=== PATIENT | male | born 1955 | race Caucasian/White ===

== ENCOUNTER → 2016-08-17 | Outpatient (CLI) | payer OTHER ==
[~2016-08-17] MED LIST: CIPRO500 MG PO; FLOMAX0.4 MG PO; HYDROCODONE BIT1 T11 PO; HYDROXYCHLOROQ200 M1 PO; METHOTREXATE S2.5 M1 PO; MOTRIN 600 MG E4 TAB PO; NORCO 5-325 TA1 EACH PO; PERCOCET 325 MG1 TA2 PO; TAMSULOSIN HCL0.4 MG PO; VICODIN 500 MG-1 TAB PO; ZOFRAN4 MG PO
== END | disposition home or self-care (01) ==
LOC: RAD 08:39
DX: M05.79 Rheumatoid arthritis with rheumatoid factor of multiple sites without organ or systems involvement (principal); M70.62 Trochanteric bursitis, left hip; M70.61 Trochanteric bursitis, right hip; M19.042 Primary osteoarthritis, left hand; M19.041 Primary osteoarthritis, right hand; M25.532 Pain in left wrist; M25.531 Pain in right wrist; M06.832 Other specified rheumatoid arthritis, left wrist; M06.831 Other specified rheumatoid arthritis, right wrist; M16.0 Bilateral primary osteoarthritis of hip

== ENCOUNTER 2016-11-07 23:16 | Inpatient (IN) | payer OTHER ==
[~2016-11-07] VITALS: Ht 167.6 cm; Wt 66.2 kg
--- NOTE | ~2016-11-07 | CON ---
[place], [place] REPORT OF CONSULTATION NAME[facility]A [facility]ERSON [id number] UNIT #: [id number] ROOM: [facility] DOCTOR: DENNIS TERRAZAS MD BIRTHDATE: [birth year] DOS: 11/09/2016 CONSULTATION REQUESTED BY: Hospitalist services, Dr. Aissatou Chang. REASON FOR CONSULTATION: To assess the patient's acute respiratory failure, pulmonary infiltration with possibility of pneumonia. HISTORY OF PRESENT ILLNESS: This is a 61-year-old white male, unknown to me. The patient has been known with longstanding history of rheumatoid arthritis treated by associate editor in [place], [place]. The patient presented to the hospital on the date of 11/08/2016. The patient has been noted with ongoing symptoms over the last 6 weeks. He has been treated for the rheumatoid arthritis with methotrexate previously. The patient was started on Arava, which is also known as generic name of leflunomide. The patient started taking the medication and noted with significant gastrointestinal symptoms of nausea, vomiting and diarrhea. The diarrhea remains persistent. He was also noted the temperature elevation intermittently, which was noted up to 102 degrees Fahrenheit. The symptoms were noted to progressively worsen. The patient also developed increased shortness of breath with a dry cough, which also progressed. The patient denies any symptoms of chest pain. The patient has contacted his associate editor and was asked to discontinue all the rheumatoid medications. The patient denies any symptoms of chest pain. The patient was seen in the [facility], Emergency Room, chest x-ray was done and he was sent home and stated there was nothing going on acutely. The patient presented to the hospital, also noted with symptoms of fever and chills. The cough has been noted essentially nonproductive. He was also noted with hypotension, treated with Levophed for few hours, which has been currently discontinued because the improvement in the hypotension. REVIEW OF SYSTEMS: GENERAL: Weakness and fatigue for this patient was noted. The patient has been noted progressive weight loss and lost about 20 pounds of body weight in the past couple of months or so. EYES: Denies any burning, redness, or tenderness. EARS, NOSE, THROAT SYMPTOMS: Denies sore throat, hoarseness, otalgia, postnasal drainage. CARDIOVASCULAR: Denies anginal pain, edema or pain of the lower extremities or palpitations. GASTROINTESTINAL: Symptoms of nausea, vomiting, diarrhea has been noted, but not completely resolved. GENITOURINARY: Denies dysuria, suprapubic pain, hematuria. SKIN: Denies lesions or rashes. CENTRAL NERVOUS SYSTEM: Denies dizziness, headache, diplopia or syncopal episodes. Remaining systems were reviewed with the patient, they were noted all negative. PAST MEDICAL HISTORY: 1. Noted with longstanding history of rheumatoid arthritis. 2. History of hypercholesterolemia. [place], [place] REPORT OF CONSULTATION NAME: TAWNYA PETERSON UNIT #: [id number] ROOM: [facility] DOCTOR: MADDY MONTALVO MD,DENNIS BIRTHDATE: [birth year] 3. History of nephrolithiasis. 4. History of vitamin D deficiency. PAST SURGICAL HISTORY: 1. Noted with history of inguinal hernia repair. 2. Some kind of dental surgery. SOCIAL HISTORY: The patient is and lives at home. He has 2 children. Denies history of occupation related pulmonary exposure. Denies alcohol use or any illicit drug use. FAMILY HISTORY: The patient's father at the age of 8080 years old related to dementia and known history of coronary artery disease. The mother at the age of 70+ years old, complications of COPD. HOME MEDICATIONS: 1. Noted as use of hydroxychloroquine 200 mg p.o. b.i.d. 2. Leflunomide 20 mg p.o. daily. 3. Methotrexate 15 mg every Wednesday, which has been used for many years. ALLERGIES: No known drug allergies. PHYSICAL EXAMINATION: GENERAL: A 61-year-old white male who has been currently noted on oxygen supplementation 50% Venturi mask. His height was recorded by the nursing staff at the time of current admission with height of 5 feet 6 inches, weight of 146 pounds, BMI 23.5. VITAL SIGNS: For the patient was noted on admission as normal, later on the highest temperature of 100.8 degree Fahrenheit. The respiratory rate range between 18-28. Heart rate of 95-103, normal sinus rhythm. The blood pressure noted 104/57 this morning and previously noted few times the dose blood pressure of 88/46, 80/52. Pulse oxygen saturation of the patient was recorded as 90% on 50% oxygen. The previous oxygen supplementation 5 liters nasal cannula was noted as 93% saturation. The patient on admission was noted on room air at 89%. HEENT: Head was atraumatic. Eyes nonicterus. NECK: Supple. CARDIOVASCULAR: S1, S2 is audible. LUNGS: The patient was noted without any wheezing. Expiratory crackles are noted in the lower lungs much greater in the right lower than the left lower lung. CENTRAL NERVOUS SYSTEM: Cranial nerves 2-12 intact. No focal deficits. MUSCULOSKELETAL: Does not show any acute deformities. SKIN: Showed no lesions or rashes. LABORATORY DATA: Arterial blood gas which was done for this patient on 11/08/2016 on 3 liters, pH of 7.52, pCO2 26, pO2 52. Arterial blood gas shows evidence of respiratory alkalosis, the patient was noted with severe hypoxemia.____ noted markedly increased. The lactic acid was 4.2 on admission, later on 1.2. The INR was just noted mildly decreased 4.48. PT/PTT for this patient on 11/08/2016, which is noted as PT and PTT normal. CMP of the patient [place], [place] REPORT OF CONSULTATION NAME: TAWNYA PETERSON UNIT #: [id number] ROOM: [facility] DOCTOR: MADDY MONTALVO MD,[facility] BIRTHDATE: [birth year] on 11/08/2016, BUN 20, creatinine 1.25, glucose 130. Sodium 135. C-reactive protein was minimally elevated to 2.02. The troponin first set was noted normal. LFTs for this patient were noted as albumin of 2.6, normal AST, ALT and alkaline phosphatase. Urinalysis of the patient was noted 1+ protein, 4+ bacteria. CBC of 11/08/2016 hemoglobin of 12, hematocrit 35.8, WBC count normal, platelet count was normal. The differential ____ noted 0.9. Influenza A and B, nasal washing antigens on 11/07/2016 were noted as negative. INR repeated yesterday was 1.3. Folic acid level noted decreased for the patient is 3.07. PTT yesterday noted at 52.7. Arterial blood gas that was done this morning 50% oxygen, pH of 7.41, pCO2 34, pO2 66.2. The INR noted 1.4, PTT as 71.7 therapeutic. CBC this morning, WBC count 4.2, hemoglobin 10.1, hematocrit 30.2, platelet count 124,000. The CMP of the patient that was noted on 11/09/2016 normal BUN and creatinine. LFTs, albumin noted at 1.8, total protein 4.4. AST, ALT and the remaining LFTs were normal. The urine culture of the patient that was done on 10/08/2016 showed no bacterial growth, preliminary. Yesterday CBC shows a platelet count of 110,000. The admission CBC for this patient was noted with platelet count of 116,000. Review of the radiology data: The chest x-ray that was done for the patient on the of this month shows bilateral lower lung bases was noted. CT of the chest the patient that was done on the vice president of consulting services shows evidence of small pulmonary embolism noted in the distal pulmonary arterial branches of the right lower lobe. It also showed diffuse interstitial process of this patient involving all the lung with air bronchogram for this patient in all of the lung. The patient noted infiltration with area of consolidation was noted in the right middle as well as in the right lower lobe. Some area of consolidation with air bronchogram for this patient was also noted in the area of consolidation. The view of the mediastinal windows does not show any evidence of lymph node enlargement. Chest x-ray done this morning shows significant further worsening with increased opacification of the lungs were noted bilaterally. There was no significant pleural fluid for the patient were noted. IMPRESSION: 1. The patient who has been noted progressive acute hypoxic respiratory failure with history of rheumatoid arthritis, chronic immunosuppression and GI symptoms. 2. Leukopenia for the patient was also noted with thrombocytopenia as well. 3. The patient with longstanding history of rheumatoid arthritis. 4. Acute pulmonary embolism involving the right lower pulmonary arterial branches. 5. Hypotension, multifactorial. The differential diagnoses for the current problem for the patient would be considered as acute process which started about 6 weeks ago with current pulmonary infiltration with possible consideration of drug-induced toxicity involving the lung with superimposed acute bacterial process would be considered. 6. Immunosuppression. Also noted for this patient related to his past history of rheumatoid arthritis and history of longstanding methotrexate use. The differential diagnosis of pneumocystis pneumonia for this patient would be considered as well along with other bacterial infection. Current infiltration and the other interstitial process could be seen ____ pulmonary edema with superimposed. Other acute lung injury ____ lung damage. [place], [place] REPORT OF CONSULTATION NAME: TAWNYA PETERSON UNIT #: [id number] ROOM: [facility] DOCTOR: MADDY MONTALVO MD,DENNIS BIRTHDATE: [birth year] 7. Thrombocytopenia. Etiology is unclear, maybe related to some bone marrow suppression issues. Mild pancytopenia was noted for this patient in the labs today. 8. The patient with folate deficiency, most likely related to chronic methotrexate use for the patient and not taking any folic acid orally would be the most likely cause. 9. Acute hypoxic respiratory failure secondary to the above. 10. GI symptoms related to use of the current new medications as Arava. PLAN OF MANAGEMENT: The patient needs to be transferred to another tertiary care facility for a more aggressive workup with all the consultants. Assessment including Rheumatology services, which is not available in this hospital. The patient will require bronchoscopy and to be assessed for the pneumocystis infection as well to be excluded. Echocardiogram has been already done to assess his left ventricular ejection fraction. I doubt if this patient has had any ongoing acute congestive heart failure. Monitor thrombocytopenia closely for this patient because of the current pulmonary embolism. Consider using the medication such as thrombin inhibitors for this patient if the thrombocytopenia persisted. The workup for thrombocytopenia should be initiated for this patient for the direct and indirect platelet antibodies and heparin-induced antibody, which could be done in the transfer hospital. At this time, the patient does not require any acute mechanical ventilatory support. However, if the patient's respiratory status progress, the patient will benefit from intubation and mechanical ventilation. It is not safe to perform the bronchoscopy unless the patient gets intubated. Other supportive therapy, plan and management and care to be continued. Keep the patient off all of his rheumatoid medication including methotrexate, Arava and hydrochloroquine. Thank you allowing me to participate in the care of this patient. DENNIS CASTAÑEDA MD CM:CONSTR:REPORT OF CONSULTATION 1106 11/10/16 0311 interface
[2016-11-07 23:24] VITALS: BP 98/64
[2016-11-07 23:33] VITALS: BP 108/60
[2016-11-07 23:36] VITALS: BP 108/60
[2016-11-08] VITALS (93 sets, daily range): BP systolic 80–164; BP diastolic 42–87
[2016-11-08 00:18] LABS: BASO % 0.4 % (0.0-1.0); EOS # 0.1 10*3/uL (0.0-0.4); EOS % 0.9 % (1.0-4.0); HEMATOCRIT 35.8 % (42.0-52.0); LYMPH # 0.6 10*3/uL (1.3-4.4); MEAN CELL VOLUME 91.8 fl (80.0-94.0); MEAN CORPUSCULAR HGB 30.8 pg (27.0-31.0); MEAN CORPUSCULAR HGB CONC 33.5 g/dl (33.0-37.0); MEAN PLATELET VOLUME 9.8 fl (9.6-12.3); MONO # 0.5 10*3/uL (0.1-1.0); NEUT # 4.3 10*3/uL (2.3-7.9); NEUT % 78.3 % (47.0-73.0); PLATELET COUNT AUTOMATED 116 10*3/uL (130-400); RED CELL DISTRI WIDTH 15.6 % (0-14.5); WHITE BLOOD COUNT 5.5 10*3/uL (4.8-10.8)
[2016-11-08 00:19] LABS: ABG HCO3 21.5 mmol/l (22-26); ABG O2 SATURATION 89.3 % (95-97); ARTERIAL BLOOD GAS PCO2 26.3 mmHg (35-45); ARTERIAL BLOOD GAS PH 7.523 (7.35-7.45); ARTERIAL BLOOD GAS PO2 52.5 mmHg (80-90)
[2016-11-08 00:30] LABS: ACT PARTIAL THROMBO TIME 24.6 SECONDS (20.8-31.5); INTERNATIONAL NORM RATIO 1.2 (2.0-3.5)
[2016-11-08 00:33] LABS: BILIRUBIN NEGATIVE (NEGATIVE); BLOOD 2+ (NEGATIVE); CLARITY SL CLOUDY (CLEAR); COLOR YELLOW (YELLOW); GLUCOSE NEGATIVE (NEGATIVE); KETONE NEGATIVE (NEGATIVE); LEUKO ESTERASE NEGATIVE (NEGATIVE); NITRITE NEGATIVE (NEGATIVE); SPECIFIC GRAVITY >= 1.030 (1.005-1.030); UROBILINOGEN 0.2 E.U./dl (0.2-1.0)
[2016-11-08 00:36] LABS: ALBUMIN 2.6 gm/dl (3.1-4.5); ALKALINE PHOSPHATASE 78 U/L (45-117); BUN 20 mg/dl (7-24); CHLORIDE 104 mmol/L (98-107); CREATININE 1.25 mg/dL (0.70-1.30); LIPASE 372 U/L (73-393); MAGNESIUM 1.9 mg/dL (1.5-2.1); POTASSIUM 4.3 mmol/L (3.5-5.1); SGOT/AST 23 IU/L (3-35); SGPT/ALT 22 U/L (12-78); SODIUM 135 mmol/L (136-145); TOTAL PROTEIN 5.6 gm/dL (6.4-8.2)
[2016-11-08 00:38] LABS: TROPONIN I < 0.015 ng/ml (<0.045)
[2016-11-08 00:40] LABS: BACTERIA 4+; CALCIUM OXALATE CRYSTALS 1+; RBC 16-20 rbc/hpf (0-2)
[2016-11-08] MEDS ORDERED: LEFLUNOMIDE20 M1 PO (05:06)
[2016-11-08] MEDS ORDERED: CHOLESTYRAMINE378 GM PO (05:08)
[2016-11-08 05:57] LABS: BASO % 0.4 % (0.0-1.0); HEMATOCRIT 32.3 % (42.0-52.0); HEMOGLOBIN 10.9 g/dl (14.0-18.0); LYMPH # 0.3 10*3/uL (1.3-4.4); LYMPH % 4.5 % (27.0-41.0); MEAN CELL VOLUME 93.6 fl (80.0-94.0); MEAN CORPUSCULAR HGB 31.6 pg (27.0-31.0); MEAN CORPUSCULAR HGB CONC 33.7 g/dl (33.0-37.0); MEAN PLATELET VOLUME 9.4 fl (9.6-12.3); MONO # 0.7 10*3/uL (0.1-1.0); MONO % 10.4 % (3.0-9.0); NEUT # 5.7 10*3/uL (2.3-7.9); PLATELET COUNT AUTOMATED 110 10*3/uL (130-400); RED BLOOD COUNT 3.45 10*6/uL (4.50-5.90); RED CELL DISTRI WIDTH 15.4 % (0-14.5); WHITE BLOOD COUNT 6.7 10*3/uL (4.8-10.8)
[2016-11-08 06:03] LABS: INTERNATIONAL NORM RATIO 1.3 (2.0-3.5)
[2016-11-08 06:32] LABS: ALBUMIN 2.1 gm/dl (3.1-4.5); ALKALINE PHOSPHATASE 65 U/L (45-117); BUN 16 mg/dl (7-24); CHLORIDE 109 mmol/L (98-107); CHOLESTEROL 86 mg/dL (<200); HDL CHOLESTEROL 25 mg/dl (40-60); LDL CHOLESTEROL 50 mg/dL (9-159); MAGNESIUM 2.1 mg/dL (1.5-2.1); PHOSPHOROUS 2.8 mg/dL (2.5-4.9); POTASSIUM 4.1 mmol/L (3.5-5.1); SGOT/AST 21 IU/L (3-35); SGPT/ALT 19 U/L (12-78); SODIUM 139 mmol/L (136-145); TOTAL PROTEIN 4.8 gm/dL (6.4-8.2); TRIGLYCERIDES 55 mg/dl (<150); VLDL CHOLESTEROL 11 mg/dL (6-40)
[2016-11-08 07:55] LABS: VITAMIN D, 25-HYDROXY 21.3 ng/mL (30-100)
[2016-11-09] VITALS (17 sets, daily range): BP systolic 94–151; BP diastolic 47–78
[2016-11-09 05:56] LABS: HEMATOCRIT 30.2 % (42.0-52.0); HEMOGLOBIN 10.1 g/dl (14.0-18.0); MEAN CELL VOLUME 94.1 fl (80.0-94.0); MEAN CORPUSCULAR HGB 31.5 pg (27.0-31.0); MEAN CORPUSCULAR HGB CONC 33.4 g/dl (33.0-37.0); MEAN PLATELET VOLUME 9.9 fl (9.6-12.3); PLATELET COUNT AUTOMATED 124 10*3/uL (130-400); RED BLOOD COUNT 3.21 10*6/uL (4.50-5.90); RED CELL DISTRI WIDTH 16.2 % (0-14.5); WHITE BLOOD COUNT 4.2 10*3/uL (4.8-10.8)
[2016-11-09 05:59] LABS: ABG BASE EXCESS -1.7 mmol/L (-2.0-2.0); ABG HCO3 21.9 mmol/l (22-26); ABG O2 SATURATION 94.5 % (95-97); ARTERIAL BLOOD GAS PCO2 34.5 mmHg (35-45); ARTERIAL BLOOD GAS PH 7.419 (7.35-7.45); ARTERIAL BLOOD GAS PO2 66.2 mmHg (80-90)
[2016-11-09 06:07] LABS: ACT PARTIAL THROMBO TIME 71.7 SECONDS (20.8-31.5); INTERNATIONAL NORM RATIO 1.4 (2.0-3.5)
[2016-11-09 06:21] LABS: BURR CELLS FEW; OVALOCYTES FEW; PLATELET SUFFICIENCY LOW (NORMAL); TOTAL CELLS COUNTED 100 #CELLS
[2016-11-09 06:34] LABS: ALBUMIN 1.8 gm/dl (3.1-4.5); ALKALINE PHOSPHATASE 59 U/L (45-117); BUN 13 mg/dl (7-24); CHLORIDE 111 mmol/L (98-107); CREATININE 0.85 mg/dL (0.70-1.30); MAGNESIUM 1.7 mg/dL (1.5-2.1); PHOSPHOROUS 2.3 mg/dL (2.5-4.9); SGOT/AST 25 IU/L (3-35); SGPT/ALT 15 U/L (12-78); SODIUM 140 mmol/L (136-145); TOTAL PROTEIN 4.4 gm/dL (6.4-8.2)
[2016-11-09] MEDS ORDERED: LEVOFLOXAC750 MG/150 IV (11:24)
[2016-11-09] MEDS ORDERED: MUCINEX ER600 MG PO (11:24)
[2016-11-09] MEDS ORDERED: MERREM IV1 GM IV (11:24)
[2016-11-09] MEDS ORDERED: XARE15TA PO (11:24)
[2016-11-09] MEDS ORDERED: NATURE'S BLEND F1 MG PO (11:24)
[2016-11-09] MEDS ORDERED: VITAMIN D-32000 UNIT PO (11:24)
[2016-11-09] MEDS ORDERED: DUONEB 3 MG/3 ML3 M1 NEB (11:24)
[2016-11-09] MEDS ORDERED: VANCOMYCIN HCL1 GM IV (11:24)
== END 2016-11-09 13:33 | disposition short-term general hospital (02) | DRG 871 ==
LOC: ED 23:16 → ICCU 11-08 03:42 → EDHOLD 11-08 03:42 → ICCU 11-08 03:50
PROVIDERS: Emergency Medicine Emergency Medical Services; Hospitalist; ADMIT Internal Medicine
DX: A41.9 Sepsis, unspecified organism (principal); R65.21 Severe sepsis with septic shock; J96.01 Acute respiratory failure with hypoxia; I26.99 Other pulmonary embolism without acute cor pulmonale; I26.90 Septic pulmonary embolism without acute cor pulmonale; J18.9 Pneumonia, unspecified organism; D72.810 Lymphocytopenia; E87.8 Other disorders of electrolyte and fluid balance, not elsewhere classified; R73.9 Hyperglycemia, unspecified; R31.9 Hematuria, unspecified; D64.9 Anemia, unspecified; M06.9 Rheumatoid arthritis, unspecified; E78.6 Lipoprotein deficiency; E55.9 Vitamin D deficiency, unspecified; E53.8 Deficiency of other specified B group vitamins; Z79.899 Other long term (current) drug therapy; Z82.49 Family history of ischemic heart disease and other diseases of the circulatory system; Z83.6 Family history of other diseases of the respiratory system

== ENCOUNTER → 2017-06-11 | Outpatient (CLI) | payer OTHER ==
[~2017-06-11] MED LIST changes: +CHOLESTYRAMINE378 GM PO; +DUONEB 3 MG/3 ML3 M1 NEB; +LEFLUNOMIDE20 M1 PO; +LEVOFLOXAC750 MG/150 IV; +MERREM IV1 GM IV; +MUCINEX ER600 MG PO; +NATURE'S BLEND F1 MG PO; +VANCOMYCIN HCL1 GM IV; +VITAMIN D-32000 UNIT PO; +XARE15TA PO
[2017-06-11 13:25] LABS: BASO # 0.1 10*3/uL (0.0-0.1); BASO % 0.7 % (0.0-1.0); EOS # 0.2 10*3/uL (0.0-0.4); EOS % 2.3 % (1.0-4.0); HEMATOCRIT 48.1 % (42.0-52.0); HEMOGLOBIN 15.1 g/dl (14.0-18.0); LYMPH # 1.8 10*3/uL (1.3-4.4); LYMPH % 22.2 % (27.0-41.0); MEAN CELL VOLUME 92.7 fl (80.0-94.0); MEAN CORPUSCULAR HGB 29.1 pg (27.0-31.0); MEAN CORPUSCULAR HGB CONC 31.4 g/dl (33.0-37.0); MEAN PLATELET VOLUME 10.5 fl (9.6-12.3); MONO # 0.9 10*3/uL (0.1-1.0); MONO % 10.7 % (3.0-9.0); NEUT # 5.3 10*3/uL (2.3-7.9); PLATELET COUNT AUTOMATED 188 10*3/uL (130-400); RED BLOOD COUNT 5.19 10*6/uL (4.50-5.90); RED CELL DISTRI WIDTH 14.6 % (0-14.5); WHITE BLOOD COUNT 8.2 10*3/uL (4.8-10.8)
[2017-06-11 13:48] LABS: ALBUMIN 3.5 gm/dl (3.1-4.5); BUN 17 mg/dl (7-24); CHLORIDE 106 mmol/L (98-107); CHOLESTEROL 179 mg/dL (<200); CREATININE 1.13 mg/dL (0.70-1.30); POTASSIUM 3.7 mmol/L (3.5-5.1); SGOT/AST 28 IU/L (3-35); SGPT/ALT 24 U/L (12-78); SODIUM 143 mmol/L (136-145); TOTAL PROTEIN 7.4 gm/dL (6.4-8.2); TRIGLYCERIDES 95 mg/dl (<150); VLDL CHOLESTEROL 19 mg/dL (6-40)
[2017-06-11 13:57] LABS: ALKALINE PHOSPHATASE 103 U/L (45-117); HDL CHOLESTEROL 47 mg/dl (40-60); LDL CHOLESTEROL 113 mg/dL (9-159)
== END | disposition home or self-care (01) ==
LOC: LAB 12:22
PROVIDERS: Internal Medicine
DX: M05.79 Rheumatoid arthritis with rheumatoid factor of multiple sites without organ or systems involvement (principal); E66.3 Overweight

== ENCOUNTER → 2017-12-09 | Outpatient (CLI) | payer OTHER ==
[2017-12-09 09:25] LABS: BASO # 0.1 10*3/uL (0.0-0.1); BASO % 0.8 % (0.0-1.0); EOS # 0.4 10*3/uL (0.0-0.4); EOS % 4.9 % (1.0-4.0); HEMATOCRIT 46.4 % (42.0-52.0); HEMOGLOBIN 15.2 g/dl (14.0-18.0); LYMPH # 2.3 10*3/uL (1.3-4.4); LYMPH % 32.3 % (27.0-41.0); MEAN CELL VOLUME 92.1 fl (80.0-94.0); MEAN CORPUSCULAR HGB 30.2 pg (27.0-31.0); MEAN CORPUSCULAR HGB CONC 32.8 g/dl (33.0-37.0); MEAN PLATELET VOLUME 10.5 fl (9.6-12.3); MONO # 0.8 10*3/uL (0.1-1.0); MONO % 11.7 % (3.0-9.0); NEUT # 3.6 10*3/uL (2.3-7.9); NEUT % 50.2 % (47.0-73.0); PLATELET COUNT AUTOMATED 192 10*3/uL (130-400); RED BLOOD COUNT 5.04 10*6/uL (4.50-5.90); RED CELL DISTRI WIDTH 13.3 % (0-14.5); WHITE BLOOD COUNT 7.1 10*3/uL (4.8-10.8)
[2017-12-09 10:04] LABS: ALBUMIN 3.7 gm/dl (3.1-4.5); ALKALINE PHOSPHATASE 86 U/L (45-117); BUN 19 mg/dl (7-24); CHLORIDE 109 mmol/L (98-107); CREATININE 1.09 mg/dL (0.70-1.30); POTASSIUM 3.8 mmol/L (3.5-5.1); SGOT/AST 19 IU/L (3-35); SGPT/ALT 18 U/L (12-78); SODIUM 143 mmol/L (136-145); TOTAL PROTEIN 7.4 gm/dL (6.4-8.2)
== END | disposition home or self-care (01) ==
LOC: LAB 08:48
PROVIDERS: Internal Medicine Rheumatology
DX: M05.79 Rheumatoid arthritis with rheumatoid factor of multiple sites without organ or systems involvement (principal); Z79.899 Other long term (current) drug therapy

== ENCOUNTER → 2017-12-21 | Outpatient (CLI) | payer OTHER | END | disposition home or self-care (01) | LOC: RAD 08:49 | DX: M05.79 Rheumatoid arthritis with rheumatoid factor of multiple sites without organ or systems involvement (principal); M70.61 Trochanteric bursitis, right hip; M70.62 Trochanteric bursitis, left hip; M25.511 Pain in right shoulder; M25.512 Pain in left shoulder; M25.532 Pain in left wrist; M25.531 Pain in right wrist; M25.552 Pain in left hip; M25.551 Pain in right hip; M25.572 Pain in left ankle and joints of left foot; M25.571 Pain in right ankle and joints of right foot ==

== ENCOUNTER 2018-09-14 23:42 | Emergency (ER) | payer OTHER, MEDICARE ==
[~2018-09-14] VITALS: Ht 167.6 cm; Wt 80.7 kg
[2018-09-15 00:09] LABS: BILIRUBIN NEGATIVE (NEGATIVE); BLOOD 2+ (NEGATIVE); CLARITY CLEAR (CLEAR); COLOR YELLOW (YELLOW); GLUCOSE NEGATIVE (NEGATIVE); KETONE TRACE (NEGATIVE); LEUKO ESTERASE NEGATIVE (NEGATIVE); NITRITE NEGATIVE (NEGATIVE); PH 5.5 (5.0-9.0); SPECIFIC GRAVITY >= 1.030 (1.005-1.030); UROBILINOGEN 0.2 E.U./dl (0.2-1.0)
[2018-09-15 00:20] LABS: BASO # 0.1 10*3/uL (0.0-0.1); BASO % 0.4 % (0.0-1.0); EOS # 0.2 10*3/uL (0.0-0.4); EOS % 1.5 % (1.0-4.0); HEMATOCRIT 48.7 % (42.0-52.0); LYMPH # 1.3 10*3/uL (1.3-4.4); MEAN CELL VOLUME 91.4 fl (80.0-94.0); MEAN CORPUSCULAR HGB CONC 32.9 g/dl (33.0-37.0); MEAN PLATELET VOLUME 10.6 fl (9.6-12.3); MONO % 8.6 % (3.0-9.0); NEUT # 9.2 10*3/uL (2.3-7.9); NEUT % 78.3 % (47.0-73.0); PLATELET COUNT AUTOMATED 204 10*3/uL (130-400); RED BLOOD COUNT 5.33 10*6/uL (4.50-5.90); RED CELL DISTRI WIDTH 13.1 % (0-14.5); WHITE BLOOD COUNT 11.8 10*3/uL (4.8-10.8)
[2018-09-15 00:32] LABS: ALBUMIN 3.9 gm/dl (3.1-4.5); ALKALINE PHOSPHATASE 97 U/L (45-117); BUN 23 mg/dl (7-24); CHLORIDE 107 mmol/L (98-107); POTASSIUM 3.6 mmol/L (3.5-5.1); SGOT/AST 19 IU/L (3-35); SGPT/ALT 19 U/L (12-78); SODIUM 140 mmol/L (136-145); TOTAL PROTEIN 7.7 gm/dL (6.4-8.2)
[2018-09-15 00:35] LABS: RBC 16-20 rbc/hpf (0-2)
[2018-09-15] MEDS ORDERED: CIPRO500 MG PO (01:23)
[2018-09-15] MEDS ORDERED: PREDNISONE20 M1 PO (01:23)
[2018-09-15] MEDS ORDERED: NORCO 5-325 TA1 EACH PO (01:23)
[2018-09-15] MEDS ORDERED: ZOFRAN4 MG PO (01:23)
[2018-09-15] MEDS ORDERED: FLOMAX0.4 MG PO (01:23)
== END 2018-09-15 01:43 | disposition home or self-care (01) ==
LOC: ED 23:42
PROVIDERS: Nurse Practitioner Family
DX: N13.2 Hydronephrosis with renal and ureteral calculous obstruction (principal); R11.2 Nausea with vomiting, unspecified; Z87.442 Personal history of urinary calculi; M06.9 Rheumatoid arthritis, unspecified; Z98.890 Other specified postprocedural states

== ENCOUNTER → 2018-11-04 | Outpatient (CLI) | payer OTHER ==
[~2018-11-04] MED LIST changes: +PREDNISONE20 M1 PO
[2018-11-04 09:41] LABS: BILIRUBIN NEGATIVE (NEGATIVE); BLOOD NEGATIVE (NEGATIVE); CLARITY CLEAR (CLEAR); COLOR YELLOW (YELLOW); GLUCOSE NEGATIVE (NEGATIVE); KETONE NEGATIVE (NEGATIVE); LEUKO ESTERASE NEGATIVE (NEGATIVE); NITRITE NEGATIVE (NEGATIVE); UROBILINOGEN 0.2 E.U./dl (0.2-1.0)
[2018-11-04 09:50] LABS: BASO % 0.5 % (0.0-1.0); EOS # 0.2 10*3/uL (0.0-0.4); EOS % 3.6 % (1.0-4.0); HEMATOCRIT 46.7 % (42.0-52.0); HEMOGLOBIN 15.1 g/dl (14.0-18.0); LYMPH # 1.9 10*3/uL (1.3-4.4); LYMPH % 29.5 % (27.0-41.0); MEAN CELL VOLUME 91.6 fl (80.0-94.0); MEAN CORPUSCULAR HGB 29.6 pg (27.0-31.0); MEAN CORPUSCULAR HGB CONC 32.3 g/dl (33.0-37.0); MEAN PLATELET VOLUME 10.6 fl (9.6-12.3); MONO # 0.6 10*3/uL (0.1-1.0); MONO % 9.2 % (3.0-9.0); NEUT # 3.6 10*3/uL (2.3-7.9); PLATELET COUNT AUTOMATED 210 10*3/uL (130-400); RED CELL DISTRI WIDTH 13.4 % (0-14.5); WHITE BLOOD COUNT 6.4 10*3/uL (4.8-10.8)
[2018-11-04 10:08] LABS: ALBUMIN 3.7 gm/dl (3.1-4.5); ALKALINE PHOSPHATASE 85 U/L (45-117); BUN 25 mg/dl (7-24); CHLORIDE 107 mmol/L (98-107); CREATININE 1.17 mg/dL (0.70-1.30); SGOT/AST 18 IU/L (3-35); SGPT/ALT 21 U/L (12-78); SODIUM 141 mmol/L (136-145); T3 UPTAKE 38 % (31-39); THYROXINE (T4) TOTAL 8.9 ug/dl (4.5-12.1); TOTAL PROTEIN 7.5 gm/dL (6.4-8.2)
== END | disposition home or self-care (01) ==
LOC: LAB 09:06
PROVIDERS: Urology
DX: N20.0 Calculus of kidney (principal); D40.0 Neoplasm of uncertain behavior of prostate

== ENCOUNTER → 2018-11-07 | Outpatient (CLI) | payer OTHER ==
[2018-11-15 14:05] LABS: BUSHITE 1.93 ratio (0.00-3.00); CALCIUM OXALATE 9.05 ratio (0.00-6.00); CALCIUM, URINE 134.1 mg/24 hr (100.0-300.0); CALCIUM, URINE 14.5 mg/dL (Not Estab.); CITRIC ACID (CITRATE) 719 mg/24 hr (320-1240); CREATININE, URINE 1088.7 mg/24 hr (1000.0-2000.0); CREATININE, URINE 117.7 mg/dL (Not Estab.); MAGNESIUM, URINE 11.4 mg/dL (Not Estab.); OSMOLALITY, URINE 568 (300-900); SODIUM, URINE 104 (58-337); SODIUM, URINE 112 mmol/L (Not Estab.); STRUVITE 0.03 ratio (0.00-1.00); URIC ACID 1.49 ratio (0.00-1.20); pH 24 HR URINE 5.9 (.)
== END | disposition home or self-care (01) ==
LOC: LAB 07:52
PROVIDERS: Urology
DX: N20.0 Calculus of kidney (principal); D40.0 Neoplasm of uncertain behavior of prostate

== ENCOUNTER → 2018-11-17 | Outpatient (CLI) | payer OTHER | END | disposition home or self-care (01) | LOC: LAB 08:23 | DX: D64.9 Anemia, unspecified (principal) ==

== ENCOUNTER → 2019-05-15 | Outpatient (CLI) | payer OTHER | END | disposition home or self-care (01) | LOC: CT 10:32 | DX: R91.8 Other nonspecific abnormal finding of lung field (principal); I25.10 Atherosclerotic heart disease of native coronary artery without angina pectoris ==

== ENCOUNTER → 2019-09-26 | Outpatient (CLI) | payer OTHER | END | disposition home or self-care (01) | LOC: RAD 10:02 | DX: N20.0 Calculus of kidney (principal); K56.49 Other impaction of intestine; N28.89 Other specified disorders of kidney and ureter ==

== ENCOUNTER → 2019-10-03 | Outpatient (CLI) | payer OTHER ==
[2019-10-03 09:17] LABS: BASO % 0.5 % (0.0-1.0); EOS # 0.1 10*3/uL (0.0-0.4); EOS % 1.7 % (1.0-4.0); HEMATOCRIT 49.7 % (42.0-52.0); LYMPH # 1.4 10*3/uL (1.3-4.4); LYMPH % 16.9 % (27.0-41.0); MEAN CELL VOLUME 90.5 fl (80.0-94.0); MEAN CORPUSCULAR HGB 28.4 pg (27.0-31.0); MEAN CORPUSCULAR HGB CONC 31.4 g/dl (33.0-37.0); MEAN PLATELET VOLUME 10.3 fl (9.6-12.3); MONO # 0.6 10*3/uL (0.1-1.0); MONO % 7.9 % (3.0-9.0); NEUT # 5.9 10*3/uL (2.3-7.9); PLATELET COUNT AUTOMATED 286 10*3/uL (130-400); RED BLOOD COUNT 5.49 10*6/uL (4.50-5.90); RED CELL DISTRI WIDTH 13.8 % (0-14.5); WHITE BLOOD COUNT 8.1 10*3/uL (4.8-10.8)
[2019-10-03 09:33] LABS: BILIRUBIN NEGATIVE (NEGATIVE); BLOOD 3+ (NEGATIVE); CLARITY CLOUDY (CLEAR); COLOR STRAW (YELLOW); GLUCOSE NEGATIVE (NEGATIVE); KETONE NEGATIVE (NEGATIVE); LEUKO ESTERASE 2+ (NEGATIVE); NITRITE NEGATIVE (NEGATIVE); SPECIFIC GRAVITY 1.015 (1.005-1.030); UROBILINOGEN 0.2 E.U./dl (0.2-1.0)
[2019-10-03 09:39] LABS: BACTERIA 4+; RBC TNTC rbc/hpf (0-2)
[2019-10-03 09:46] LABS: ALBUMIN 3.7 gm/dl (3.1-4.5); CHLORIDE 107 mmol/L (98-107); POTASSIUM 4.5 mmol/L (3.5-5.1); SODIUM 137 mmol/L (136-145)
[2019-10-03 09:54] LABS: ALKALINE PHOSPHATASE 107 U/L (45-117); BUN 16 mg/dl (7-24); CREATININE 1.27 mg/dL (0.70-1.30); SGOT/AST 23 IU/L (3-35); SGPT/ALT 22 U/L (12-78); T3 UPTAKE 34 % (31-39); THYROXINE (T4) TOTAL 9.8 ug/dl (4.5-12.1); TOTAL PROTEIN 8.3 gm/dL (6.4-8.2)
[2019-10-03 10:51] LABS: PTH INTACT 36.5 pg/mL (18.5-88.0)
== END | disposition home or self-care (01) ==
LOC: LAB 08:48
PROVIDERS: Urology
DX: N20.0 Calculus of kidney (principal); R31.9 Hematuria, unspecified; D40.0 Neoplasm of uncertain behavior of prostate; E83.50 Unspecified disorder of calcium metabolism

== ENCOUNTER → 2019-10-06 | Outpatient (CLI) | payer OTHER ==
[~2019-10-06] MED LIST changes: +VISTARIL25 M2 PO
== END | disposition home or self-care (01) ==
LOC: LAB 09:13
PROVIDERS: Urology
DX: D40.0 Neoplasm of uncertain behavior of prostate (principal); N20.0 Calculus of kidney; R31.9 Hematuria, unspecified

== ENCOUNTER 2019-10-07 09:05 | Emergency (ER) | payer OTHER ==
[~2019-10-07] VITALS: Ht 167.6 cm; Wt 83.9 kg
[~2019-10-07 09:05] MED LIST changes: -VISTARIL25 M2 PO
[2019-10-07 09:59] LABS: BASO % 0.5 % (0.0-1.0); EOS # 0.1 10*3/uL (0.0-0.4); EOS % 0.9 % (1.0-4.0); HEMATOCRIT 44.1 % (42.0-52.0); LYMPH % 12.8 % (27.0-41.0); MEAN CELL VOLUME 88.2 fl (80.0-94.0); MEAN CORPUSCULAR HGB 28.8 pg (27.0-31.0); MEAN CORPUSCULAR HGB CONC 32.7 g/dl (33.0-37.0); MEAN PLATELET VOLUME 10.3 fl (9.6-12.3); MONO # 0.6 10*3/uL (0.1-1.0); MONO % 7.6 % (3.0-9.0); NEUT % 77.9 % (47.0-73.0); PLATELET COUNT AUTOMATED 264 10*3/uL (130-400); RED CELL DISTRI WIDTH 13.7 % (0-14.5); WHITE BLOOD COUNT 7.7 10*3/uL (4.8-10.8)
[2019-10-07 10:13] LABS: ALBUMIN 3.4 gm/dl (3.1-4.5); ALKALINE PHOSPHATASE 82 U/L (45-117); BUN 15 mg/dl (7-24); CHLORIDE 109 mmol/L (98-107); CREATININE 1.27 mg/dL (0.70-1.30); POTASSIUM 4.3 mmol/L (3.5-5.1); SGOT/AST 15 IU/L (3-35); SGPT/ALT 16 U/L (12-78); SODIUM 139 mmol/L (136-145); TOTAL PROTEIN 7.6 gm/dL (6.4-8.2)
[2019-10-07] MEDS ORDERED: ZOFRAN4 MG PO (12:09)
[2019-10-07] MEDS ORDERED: VISTARIL25 M2 PO (12:09)
== END 2019-10-07 12:09 | disposition home or self-care (01) ==
LOC: ED 09:05
PROVIDERS: Nurse Practitioner Family
DX: F41.9 Anxiety disorder, unspecified (principal); Z79.899 Other long term (current) drug therapy

== ENCOUNTER → 2019-10-18 | Outpatient (CLI) | payer OTHER, MEDICARE ==
[~2019-10-18] MED LIST changes: +VISTARIL25 M2 PO
== END | disposition home or self-care (01) ==
LOC: US 15:36
DX: N28.1 Cyst of kidney, acquired (principal); N20.0 Calculus of kidney

== ENCOUNTER → 2021-01-03 | Outpatient (CLI) | payer OTHER | END | disposition home or self-care (01) | LOC: US 10:03 | PROVIDERS: ATTEND Physician Assistant | DX: N28.1 Cyst of kidney, acquired (principal); R79.82 Elevated C-reactive protein (CRP); G72.9 Myopathy, unspecified ==

== ENCOUNTER → 2021-01-14 | Outpatient (CLI) | payer OTHER | END | disposition home or self-care (01) | LOC: CT 09:00 | PROVIDERS: ATTEND Physician Assistant | DX: N20.0 Calculus of kidney (principal); K40.90 Unilateral inguinal hernia, without obstruction or gangrene, not specified as recurrent; K76.89 Other specified diseases of liver; R79.89 Other specified abnormal findings of blood chemistry; G72.9 Myopathy, unspecified; R10.9 Unspecified abdominal pain; R31.9 Hematuria, unspecified; N28.1 Cyst of kidney, acquired; I25.10 Atherosclerotic heart disease of native coronary artery without angina pectoris ==

== ENCOUNTER → 2021-02-03 | Outpatient (CLI) | payer OTHER ==
[2021-02-03 14:09] LABS: BASO # 0.1 10*3/uL (0.0-0.1); BASO % 0.6 % (0.0-1.0); EOS # 0.1 10*3/uL (0.0-0.4); EOS % 0.8 % (1.0-4.0); HEMATOCRIT 37.9 % (42.0-52.0); LYMPH # 1.8 10*3/uL (1.3-4.4); LYMPH % 21.6 % (27.0-41.0); MEAN CELL VOLUME 90.7 fl (80.0-94.0); MEAN CORPUSCULAR HGB 29.4 pg (27.0-31.0); MEAN CORPUSCULAR HGB CONC 32.5 g/dl (33.0-37.0); MEAN PLATELET VOLUME 10.2 fl (9.6-12.3); MONO # 0.7 10*3/uL (0.1-1.0); MONO % 8.9 % (3.0-9.0); NEUT # 5.6 10*3/uL (2.3-7.9); PLATELET COUNT AUTOMATED 236 10*3/uL (130-400); RED BLOOD COUNT 4.18 10*6/uL (4.50-5.90); WHITE BLOOD COUNT 8.2 10*3/uL (4.8-10.8)
[2021-02-03 14:23] LABS: ALBUMIN 3.5 gm/dl (3.1-4.5); CREATININE 1.98 mg/dL (0.70-1.30); POTASSIUM 4.1 mmol/L (3.5-5.1); TOTAL PROTEIN 8.2 gm/dL (6.4-8.2)
== END | disposition home or self-care (01) ==
LOC: LAB 13:48
PROVIDERS: ATTEND Urology
DX: R79.89 Other specified abnormal findings of blood chemistry (principal)

== ENCOUNTER → 2021-02-10 | Outpatient (CLI) | payer OTHER | END | disposition home or self-care (01) | LOC: LAB 11:25 | PROVIDERS: ATTEND Urology | DX: R94.4 Abnormal results of kidney function studies (principal) ==

== ENCOUNTER → 2021-03-28 | Outpatient (CLI) | payer OTHER ==
[2021-03-29 02:06] LABS: TOTAL PROTEIN, SERUM 7.3 g/dL (6.0-8.5)
[2021-03-29 05:06] LABS: HEP B CORE AB, IGM Negative (Negative); HEPATITIS B SURFACE AG Negative (Negative); HEPATITIS C VIRUS ANTIBODY <0.1 s/co (0.0-0.9)
[2021-03-31 11:06] LABS: GLOMERULAR BASEMENT AB 3 units (0-20)
[2021-03-31 14:08] LABS: ALBUMIN 3.7 g/dL (2.9-4.4); ALPHA-1-GLOBULIN 0.2 g/dL (0.0-0.4); ALPHA-2-GLOBULIN 0.9 g/dL (0.4-1.0); BETA GLOBULIN 1.1 g/dL (0.7-1.3); GAMMA GLOBULIN 1.4 g/dL (0.4-1.8); GLOBULIN, TOTAL 3.6 g/dL (2.2-3.9); M-SPIKE Not Observed g/dL (Not Observed)
[2021-03-31 17:06] LABS: ANTIMYELOPEROXIDASE (MPO) ABS 17.3 U/mL (0.0-9.0)
[2021-04-01 14:07] LABS: ALBUMIN, URINE 65.4 % (.); ALPHA-1-GLOBULIN, URINE 1.4 % (.); ALPHA-2-GLOBULIN, URINE 5.4 % (.); BETA GLOBULIN, URINE 15.1 % (.); GAMMA GLOBULIN, URINE 12.7 % (.); M-SPIKE, % Not Observed % (Not Observed); PROTEIN,TOTAL - URINE RANDOM 59.1 mg/dL (Not Estab.)
[2021-04-01 17:07] LABS: ATYPICAL PANCA <1:20 titer (Neg:<1:20); CYTOPLASMIC (C-ANCA) 1:20 titer (Neg:<1:20)
== END | disposition home or self-care (01) ==
LOC: LAB 08:46
PROVIDERS: ATTEND Internal Medicine Nephrology
DX: N18.32 Chronic kidney disease, stage 3b (principal)

== ENCOUNTER → 2021-04-21 | Outpatient (CLI) | payer OTHER ==
[2021-04-21 12:27] LABS: BILIRUBIN Negative (Negative); BLOOD 3+ (Negative); CLARITY Clear (Clear); COLOR Yellow (Yellow); GLUCOSE Negative (Negative); KETONE Trace (Negative); LEUKO ESTERASE Negative (Negative); NITRITE Negative (Negative); UROBILINOGEN 0.2 E.U./dl (0.0-1.0)
[2021-04-21 13:09] LABS: RBC 21-30 rbc/hpf (0-2)
[2021-04-22 14:09] LABS: ANTI-DSDNA ANTIBODIES <1 IU/mL (0-9); ANTI-RNP ANTIBODIES 0.2 AI (0.0-0.9)
[2021-04-23 13:06] LABS: ATYPICAL PANCA <1:20 titer (Neg:<1:20); CYTOPLASMIC (C-ANCA) <1:20 titer (Neg:<1:20)
[2021-04-24 15:07] LABS: ANTIMYELOPEROXIDASE (MPO) ABS 17.5 U/mL (0.0-9.0)
== END | disposition home or self-care (01) ==
LOC: LAB 11:56
PROVIDERS: ATTEND Internal Medicine Nephrology
DX: N18.32 Chronic kidney disease, stage 3b (principal); R76.8 Other specified abnormal immunological findings in serum; R80.9 Proteinuria, unspecified

== ENCOUNTER → 2021-12-15 | Outpatient (CLI) | payer OTHER ==
[2021-12-28 19:06] LABS: BUSHITE 0.02 ratio (0.00-3.00); CALCIUM OXALATE 0.71 ratio (0.00-6.00); CALCIUM, URINE 41.5 mg/24 hr (0.0-320.0); CITRIC ACID (CITRATE) 434 mg/24 hr (320-1240); CREATININE, URINE 1168.2 mg/24 hr (1000.0-2000.0); CREATININE, URINE 56.3 mg/dL (Not Estab.); MAGNESIUM, URINE 3.3 mg/dL (Not Estab.); MONOSODIUM URATE 0.54 ratio (0.00-4.00); OSMOLALITY, URINE 305 (300-900); SODIUM, URINE 133 (58-337); SODIUM, URINE 64 mmol/L (Not Estab.); STRUVITE 0.01 ratio (0.00-1.00); URIC ACID 2.08 ratio (0.00-1.20); pH 24 HR URINE 5.2 (4.5-8.0)
== END | disposition home or self-care (01) ==
LOC: LAB 09:32
PROVIDERS: ATTEND Internal Medicine Nephrology
DX: N20.0 Calculus of kidney (principal)

== ENCOUNTER → 2022-07-14 | Outpatient (CLI) | payer OTHER | END | disposition home or self-care (01) | LOC: LAB 11:23 | PROVIDERS: ATTEND Internal Medicine Nephrology | DX: N20.0 Calculus of kidney (principal) ==

== ENCOUNTER → 2025-02-21 | Outpatient (CLI) | payer MEDICARE | END | disposition home or self-care (01) | LOC: US 09:42 | PROVIDERS: ATTEND Urology | DX: N20.0 Calculus of kidney (principal); N28.1 Cyst of kidney, acquired; Z96.0 Presence of urogenital implants ==